=== PATIENT | female | born 1980 | race Caucasian/White ===

== ENCOUNTER 2016-11-26 01:04 | Emergency (ER) | payer OTHER ==
[~2016-11-26] VITALS: Ht 167.6 cm; Wt 65.8 kg
--- NOTE | 2016-11-26 01:37 | ED PSYCHIATRIC COMPLAINT ---
History of Present Illness General Chief Complaint: Psychiatric Related Complaint Stated Complaint: +SI "I NEED HELP"PER PT Source: patient Exam Limitations: no limitations Vital Signs & Intake/Output Vital Signs & Intake/Output Vital Signs Date Time Temp Pulse Resp B/P Pulse O2 O2 Flow FiO2 Ox Delivery Rate 11/26 1631 98.5 58 16 109/57 98 Room Air 11/26 1626 97.0 11/26 1555 97.0 11/26 1431 97.0 60 16 112/58 97 Room Air 11/26 1230 79 18 118/74 97 Room Air 11/26 1134 97.0 11/26 0900 97.0 11/26 0855 97.0 60 16 120/79 96 Room Air 11/26 0632 96.8 65 16 125/87 95 Room Air 11/26 0133 97.5 66 18 136/88 98 Triage Note: PT TO ED, STATES THAT SHE HAS BEEN CLEAN FROM COCAINE FOR 3 YEARS AND HAD A RELAPSE IN APRIL. PT STATES THAT SINCE APRIL, COCAINE AND ALCOHOL USE HAS BEEN HEAVY AND SHE IS HAVING A HARD TIME GETTING BACK ON TRACK. PT STATES THAT SHE FEELS SAD AND HOPELESS AT THIS TIME, SOMETIMES SHE FEELS TO HURT HERSELF BUT DOES NOT CURRENTLY HAVE A PLAN. PT STATES "I HAVE COME CLOSE TO HURTING MYSELF IN THE PAST THOUGH." PT CALM AND COOPERATIVE, CHANGED IN TO BLUE SCRUBS, SECURITY PRESENT FOR WANDING. Triage Nurses Notes Reviewed? yes Onset: Gradual Duration: week(s): Timing: recent history Severity: moderate Associated Symptoms: anxiety, suicidal ideation HPI: 36-year-old woman on methadone presents with suicidality. She states that she recently relapsed on alcohol and cocaine. She states that it has affected her life where she dropped out of a masters program. She has no plan, but notes severe depression where she would like to . She has never had withdrawal seizures or tremors. She is otherwise well and has no other concerns. (ELISHA CROSS,MARLINE Broussard) Allergies Coded Allergies: Penicillins (Severe, HIVES 11/26/16) Reconcile Medications Disulfiram (Antabuse) 250 MG TABLET 1 TAB PO ALCOHOL ABUSE (Reported) Lamotrigine (Lamictal) 100 MG TABLET 1 TAB PO DAILY MENTAL HEALTH (Reported) Methadone HCl 10 MG/ML ORAL.CONC 110 MG PO DAILY MAINTENCE (Reported) (BETO CROSS,ANYA Luis) Past History Travel History Traveled to [place] past 21 day No Medical History Any Pertinent Medical History? see below for history Psychiatric: alcohol dependence, depression, opioid dependence Surgical History Surgical History: none Family History Hx Contributory? No (ELISHA CROSS,MARLINE Broussard) Review of Systems Review of Systems Constitutional: Reports: no symptoms. EENTM: Reports: no symptoms. Respiratory: Reports: no symptoms. Cardiovascular: Reports: no symptoms. GI: Reports: no symptoms. Genitourinary: Reports: no symptoms. Musculoskeletal: Reports: no symptoms. Skin: Reports: no symptoms. Neurological/Psychological: Reports: no symptoms. Hematologic/Endocrine: Reports: no symptoms. Immunologic/Allergic: Reports: no symptoms. All Other Systems: Reviewed and Negative (ELISHA CROSS,MARLINE Broussard) Physical Exam Physical Exam General Appearance: well developed/nourished, mild distress Head: atraumatic Eyes: Bilateral: PERRL, EOMI. Ears, Nose, Throat: normal pharynx, normal ENT inspection, hearing grossly normal Neck: normal inspection, supple Respiratory: normal breath sounds Cardiovascular: regular rate/rhythm Gastrointestinal: soft, non-tender Extremities: normal range of motion Neurological/Psychiatric: no motor/sensory deficits, awake, anxious Appearance/Memory/Insight: appropriate appearance, appropriate insight Behavoir/Eye Contact/Speech: cooperative Skin: intact, normal color, warm/dry SAD PERSONS SAD PERSONS Response Value Depression/Hopelessness? yes 2 Excessive Ethanol/Drug Use? yes 1 Rational Thinking Loss? yes 2 Single//? yes 1 Social Support? has no support 1 Total 7 SAD PERSONS Done? yes (ELISHA CROSS,MARLINE Broussard) Progress Differential Diagnosis: drug intoxication, electrolyte abnormality Plan of Care: Orders Procedure Date/time Status Regular Diet 11/26 B Active EKG 11/26 199 Active Continuous Observation Monitor 11/27 135 Active ED CRISIS PSYCH CONSULT 11/27 135 Active URINE DRUG SCREEN FOR ER ONLY 11/26 110 Complete ETHANOL 11/26 110 Complete CBC WITHOUT DIFFERENTIAL 11/26 110 Complete BASIC METABOLIC PANEL 11/26 110 Complete Laboratory Tests 11/26/16 0800: Urine Opiates Screen < 100.00, Methadone Screen > 735 H, Barbiturate Screen 66, Ur Phencyclidine Scrn 14.80, Amphetamines Screen 114, U Benzodiazepines Scrn 105 , Urine Cocaine Screen > 1000 H, Urine Cannabis Screen < 5.00 11/26/16 0610: Anion Gap 7, Estimated GFR > 60, BUN/Creatinine Ratio 12.9, Glucose 87, Calcium 10.0, CBC w Diff NO MAN DIFF REQ, RBC 3.76 L, MCV 95.2, MCH 32.1 H, RDW 12.6, MPV 7.8, Gran % 43.1, Lymphocytes % 46.6, Monocytes % 6.5, Eosinophils % 3.2, Basophils % 0.6, Absolute Granulocytes 2.5, Absolute Lymphocytes 2.7, Absolute Monocytes 0.4, Absolute Eosinophils 0.2, Absolute Basophils 0, PUBS MCHC 33.8, Serum Alcohol < 10.0 Initial ED EKG: normal axis, normal intervals, normal p-waves, normal QRS complex, normal sinus rhythm Hand-Off Endorsed To: ANYA PÉREZ MD Endorsed Time: 0700 Pending: consult, labs (ELISHA CROSS,MARLINE Broussard) Comments: Patient has been seen and evaluated by the apprentice jockey. Patient is stable for discharge. (ANYA PÉREZ MD) Departure Departure Condition: Stable Clinical Impression Primary Impression: Depression Secondary Impressions: Alcoholism, Polysubstance abuse Referrals: UNKNOWN Departure Forms: Customer Survey General Discharge Information (MARLINE TELLO MD) Departure Disposition: HOME OR SELF CARE Additional Instructions: Follow-up as per the recommendations of the apprentice jockey. (ANYA PÉREZ MD)
[2016-11-26 06:23] LABS: ABSOLUTE BASOPHIL COUNT 0 /CUMM (0.0-0.2); ABSOLUTE EOSINOPHIL COUNT 0.2 /CUMM (0.0-0.7); ABSOLUTE GRANULOCYTE CT 2.5 /CUMM (1.4-6.5); ABSOLUTE LYMPH COUNT 2.7 /CUMM (1.2-3.4); ABSOLUTE MONOCYTE COUNT 0.4 /CUMM (0.10-0.60); BASOPHIL % 0.6 % (0.0-2.0); EOSINOPHIL % 3.2 % (0-5); GRANULOCYTE % 43.1 % (42.2-75.2); HEMATOCRIT 35.8 % (37-47); MEAN CORPUSCULAR HGB 32.1 PG (27.0-31.0); MEAN CORPUSCULAR HGB CONC 33.8 G/DL (33.0-37.0); MEAN CORPUSCULAR VOLUME 95.2 FL (81.0-99.0); MEAN PLATELET VOLUME 7.8 FL (7.4-10.4); PLATELET COUNT 248 /CUMM (130-400); RBC DISTRIBUTION WIDTH 12.6 % (11.5-14.5); RED BLOOD CELL CT 3.76 /CUMM (4.20-5.40); WHITE BLOOD CELL COUNT 5.8 /CUMM (4.8-10.8)
[2016-11-26] MEDS ORDERED: ABILIFY2 MG (07:56)
[2016-11-26] MEDS ORDERED: LAMICTAL100 M2 PO (08:15)
[2016-11-26] MEDS ORDERED: METHADONE10 MG/1 M2 PO (08:16)
[2016-11-26] MEDS ORDERED: ANTABUSE250 M1 PO (08:18)
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
[2016-11-26 16:31] VITALS: BP 109/57
== END 2016-11-26 18:28 ==
LOC: ERH 01:04
PROVIDERS: Pediatrics
DX: F32.9 Major depressive disorder, single episode, unspecified (principal); F10.20 Alcohol dependence, uncomplicated; F14.10 Cocaine abuse, uncomplicated
CPT/HCPCS: 80307; 93005; 93010; G0463; G0480

== ENCOUNTER 2016-12-25 01:16 | Emergency (ER) | payer OTHER ==
[~2016-12-25 01:16] MED LIST: ABILIFY2 MG; ANTABUSE250 M1 PO; LAMICTAL100 M2 PO; METHADONE10 MG/1 M2 PO
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
[2016-12-25 02:06] LABS: ABSOLUTE BASOPHIL COUNT 0 /CUMM (0.0-0.2); ABSOLUTE EOSINOPHIL COUNT 0.7 /CUMM (0.0-0.7); ABSOLUTE GRANULOCYTE CT 3.5 /CUMM (1.4-6.5); ABSOLUTE LYMPH COUNT 3.1 /CUMM (1.2-3.4); ABSOLUTE MONOCYTE COUNT 0.4 /CUMM (0.10-0.60); BASOPHIL % 0.6 % (0.0-2.0); EOSINOPHIL % 8.6 % (0-5); GRANULOCYTE % 45.1 % (42.2-75.2); HEMATOCRIT 39.5 % (37-47); MEAN CORPUSCULAR HGB CONC 33.6 G/DL (33.0-37.0); MEAN PLATELET VOLUME 8.1 FL (7.4-10.4); PLATELET COUNT 246 /CUMM (130-400); RBC DISTRIBUTION WIDTH 13.1 % (11.5-14.5); RED BLOOD CELL CT 4.16 /CUMM (4.20-5.40); WHITE BLOOD CELL COUNT 7.7 /CUMM (4.8-10.8)
--- NOTE | 2016-12-25 12:36 | ED PSYCH CRISIS CONSULTATION ---
See Addendum Crisis Consult Basic Assessment Date of Consult: 12/25/16 Responsible Person/Accompanied By: came in with her boyfriend, she drove them Insurance Authorization: Insurance #1: Insurance name: TRACI LEE Phone number: Policy number: [id number] Group number: Authorization number: ED Provider: Patient's ED Provider: LUIS WOODARD MD Primary Care Physician: Patient's PCP: PATIENT HAS NO PRIMARY CARE DR PCP's Phone Number: Current Psychiatrist: [facility] Chief Complaint: Psychiatric Related Complaint Patient's Quote: "i was really getting bad" Present Illness: Pt is a 36 year old female. She drove herself here with her boyfriend after leaving a sober house due to reckless behavior "arguing with boyfriend" and drug use. Pt reports she wants to end the relationship with her boyfriend after 10 years because they "aren't good together, and we can't keep doing this". Pt reports she got her first "F" in her masters degree program, and although she is still in the prgram she is worried if she doesnt get help/rehab and stop using she is going to fail completely. 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 She relasped on alcohol and cocaine back in April, and reports everything is getting worse since then. she also states she has been clean from heroin for past 10 years, and was prescribed suboxone during thta time until August 2016, she was then switched to Methadone and is now prescribed 110mg daily. (confirmed , she is seen at [facility] in [place]. She is unhappy she is on methadone, "its a scam, I wish I never started". Pt reports she needs a co- occuring rehab, but she is increasingly anxious and depressed, she has had fleeting thoughts of si, her only attempt was at the age of [age] years old. she is prescribed Lamictal at [facility] in [place]. Patient's Address: [address] [place] [address] Other Who Do You Live With? Mother (was residing in sober house) Family/Informants Interviewed: Spoke to her Mother, she can still return home if she doesn't stay with her boyfriend, she states she could probably go home, but she needs rehab, "she as at the lowest part of her life". Allergies - Coded Allergies: Penicillins (Severe, HIVES 11/26/16) Current Medications - Scheduled Medications Lamotrigine (Lamictal) 100 MG TABLET 1 TAB PO DAILY MENTAL HEALTH (Reported) Entered as Reported by FRANKLYN ARVIZU on 11/26/16 0815 Methadone HCl 10 MG/ML ORAL.CONC 110 MG PO DAILY MAINTENCE (Reported) Entered as Reported by FRANKLYN ARVIZU on 11/26/16 0816 Miscellaneous Medications Disulfiram (Antabuse) 250 MG TABLET 1 TAB PO ALCOHOL ABUSE (Reported) Entered as Reported by FRANKLYN ARVIZU on 11/26/16 0818 Laboratory Results: Laboratory Tests 12/25/16 0156: Anion Gap 1 L, Estimated GFR > 60, BUN/Creatinine Ratio 11.4, Glucose 107 H, Calcium 10.9 H, Total Bilirubin 0.3, AST 19, ALT 25, Alkaline Phosphatase 54, Total Protein 6.6, Albumin 4.0, Globulin 2.6, Albumin/Globulin Ratio 1.5, CBC w Diff NO MAN DIFF REQ, RBC 4.16 L, MCV 95.0, MCH 32.0 H, RDW 13.1, MPV 8.1, Gran % 45.1, Lymphocytes % 40.5, Monocytes % 5.2, Eosinophils % 8.6 H, Basophils % 0.6, Absolute Granulocytes 3.5, Absolute Lymphocytes 3.1, Absolute Monocytes 0.4, Absolute Eosinophils 0.7, Absolute Basophils 0, PUBS MCHC 33.6, Salicylates < 1.0, Acetaminophen < 10.0 L, Serum Alcohol 36.0 12/25/16 0150: Urine Opiates Screen < 100.00, Methadone Screen > 735 H, Barbiturate Screen 62, Ur Phencyclidine Scrn < 6.00, Amphetamines Screen < 100, U Benzodiazepines Scrn < 85, Urine Cocaine Screen > 1000 H, Urine Cannabis Screen < 5.00 Past History Past Medical History Neurological: NONE EENT: NONE Cardiovascular: NONE Respiratory: NONE Gastrointestinal: NONE Hepatic: NONE Renal: NONE Musculoskeletal: NONE Psychiatric: alcohol dependence, depression, opioid dependence Endocrine: NONE Blood Disorders: NONE Cancer(s): NONE Past Surgical History Surgical History: 1 Psychosocial History Strengths/Capabilities: Pt motivated to get clean. Pt wants to finish school, and has a supportive family Physical Limitations (Interventions): no Psychiatric Treatment History Psych Treatment Psychiatric Treatment Yes Inpatient Treatment No Outpatient Treatment Yes Location of Treatment [facility] Reason for Treatment mood Dates of Treatment "currently" Response to Treatment Unknown Diagnosis by History: F10.20 Alcohol use d/o severe F14.20 stimulant use d/o severe Substance Use/Abuse History Drug Use/Abuse 1 Substances Used/Abused Yes Substance Used/Abused Alcohol First Use 15 Last Used yesterday How much used/taken varies How often varies For how long on and off for years Route of use oral Drug Use/Abuse 2 Substances Used/Abused Yes Substance Used/Abused Cocaine First Use 23 Last Used yesterday How much used/taken unknown/varies How often varies/ relapse in April For how long on and off for years Route of use unknown Substance Abuse Treatment Substance Abuse Treatment Past Substance Abuse [place] No Comments: "1 rehab", but doesnt recall details Current Mental Status Mental Status Orientation: Person, Place, Situation Affect: Anxious Speech: Soft (has sore throat) Neuro-vegetative: Concentration Poor, Loss of Interest, Sleep Disturbance Appearance Appearance- Dress/Hygiene: in hospital attire Behaviors Thought Process: Flight of Ideas Thought Content: WNL Memory: WNL Insight: Fair SI/HI Risk Assessment Past Suicidal Ideation/Attempts Yes Current Suicidal Ideation/Att Yes Past Homicidal Ideation/Att: No Current Homicidal Ideation/Attempts No Degree of Intent: Thoughts/No Intent, risky behaviors Danger To: Self Risk Factors: high anxiety/distress, substance abuse, poor impulse control Lethality Ratin PTSD Checklist PTSD Done? patient declined ED Management Sitter: Yes Restraints: No DSM5/PS Stressors/Medical Prob Diagnosis' (DSM 5, Stressors, Medical): F10.20 Alcohol use d/o severe F14.20 stimulant use d/o severe Unspecified depressive D/O F. 32.9 Current GAF: 35 Departure Disposition Psych Medical Clearance Date: 12/25/16 Medically Cleared at: 1200 Time Started: 1200 Time Ended: 129 Psychiatrist Consulted: Ct CROSS,Edamanda Date Disposition Established: 04/07/17 Time Disposition Established: 0130 Plan for Disposition - Modality: Re eval Rationale for Disposition: Pt requires an EKG per Dr. Fofana and will need a re-eval, to determine level of care. Pt may benefit from IOP. Pt is not SI with plan, but is feeling more depressed than usual, currently under influence of cocaine. Referrals PATIENT HAS NO PRIMARY CARE DR (PCP/Family)
--- NOTE | 2016-12-26 12:55 | ED PSYCHIATRIST/APRN CONSULT ---
Psychiatrist/[employer]PER[employer] ED Consult Assessment and Plan: ED and crisis notes reviewed. D/w crisis SW. In brief 36 y/o F with h/o dep and anxiety sx's complicated by substance use disorders, including opiate, alcohol, cocaine, presenting with SI in the context of multiple psychosocial stressors. Plan to o/d on benzodiazepines. Evaluated Nandini this morning. She continues to endorse same with limited ability to mentalize safe discharge plan. MSE: coopertaive, disheveled CF in NAD, no psychomotor ag/ret, limited EC, speech wnl. Mood "depressed and anxious." affect constricteed, mildly labile. TP mildly impoverished, TC wnl. +SI, without immediate plan, negative HI. Denies AVH. Cognition grossly intact. I/J limited. A/P: Cointinues to endorse significant psychiatric sx's and SI. These dynamic factors along with significant substance use place her at imminent risk currently if discharged. Continue to attempt to arrange psychiatric hospitalization on voluntary basis.
--- NOTE | 2016-12-27 11:47 | ED PSY CRISIS COLLATERAL NOTE ---
Collateral Note Collateral Note Family/Inform/Boo Contacts: Pt. interviewed by GENEVIEVE as she has been in ED over 24 hours. Pt. reported continuing to feel anxious and "lonely" in the ED. She continued to express that she wanted to be hospitalizd on "a co-occurring unit". She appeared younger than her stated age, sitting cross legged in bed with a stuffed animal. She stated that her mood was "depressed" but that she could remain safe in the ED while waiting for an inpatient bed.
--- NOTE | 2016-12-27 14:07 | ED PSYCHIATRIST/APRN CONSULT ---
Psychiatrist/ROOM WORKER ED Consult Assessment and Plan: ED and crisis notes reviewed. D/w crisis SW. Continues to await an inpatient bed. On My interview today she continues to endorse depression with passive suicidal ideation. Multiple psychosocial stressors. Concerned about her boyfriend or ex-boyfriend getting his clothes and supplies from her car. MSE consistent with yesterday: Cooperative, disheveled CF in NAD, no psychomotor ag/ret, limited EC, speech wnl. Mood "worried." affect constricted, mildly labile. TP mildly impoverished, TC wnl. +SI, without immediate plan, negative HI. Denies AVH. Cognition grossly intact. I/J limited. A/P: Continues to express depressed mood, anxiety, and suicidal ideation. Will continue to attempt to arrange inpatient hospitalization.
[2016-12-28 14:00] VITALS: BP 123/76
== END 2016-12-28 15:30 | disposition short-term general hospital (02) ==
LOC: ERH 01:16
PROVIDERS: Emergency Medicine
DX: F32.9 Major depressive disorder, single episode, unspecified (principal); R45.851 Suicidal ideations; F14.10 Cocaine abuse, uncomplicated
CPT/HCPCS: 80307; 93005; 93010; G0463; G0480; J3101